=== PATIENT | female | born 1985 | race Caucasian/White ===

== ENCOUNTER 2018-01-02 01:34 | Inpatient (IN) | payer OTHER ==
[2018-01-02] MEDS ORDERED: Misoprostol 400 MCG (4 X 100 MCG TAB) RECTAL PRN (03:03)
[2018-01-02] MEDS ORDERED: Benzocaine/Menthol 20%-0.5% Spray 56 GM Canister TOP PRN (03:03)
[2018-01-02] MEDS ORDERED: Sodium Chloride 0.9% 10 ML Syringe FLUSH PRN (03:03)
[2018-01-02] MEDS ORDERED: Tranexamic Acid 1,000 MG in Sodium Chloride 0.9% 100 ML IV PRN (03:03)
[2018-01-02] MEDS ORDERED: Carboprost Tromethamine 250 MCG/1 ML Amp IM PRN (03:03)
[2018-01-02] MEDS ORDERED: Oxytocin 10 Units/1 ML SDV IM PRN (03:03)
[2018-01-02] MEDS: Ibuprofen 800 MG Tab PO PRN ×3 (03:30→19:36)
[2018-01-02] MEDS ORDERED: Lactated Ringers 1,000 ML IV SCH (03:30)
[2018-01-02] MEDS ORDERED: Oxytocin/Normal Saline 30 UNIT/500 ML BAG IV SCH (03:30)
--- NOTE | 2018-01-02 06:16 | HP ---
HISTORY OF PRESENT ILLNESS: Jana is a 2, para 1-1-1-1, who presents at 39 weeks gestation with active labor. She was seen by her circulation supervisor, Dr. Neff earlier today in clinic and was 4 to 5 cm. She had her membranes stripped at that time. She states that labor began this evening, and significantly strengthened around 1:00. She arrived to the hospital here and nurse found her to be 9 cm dilated with significant urge to push. OBSTETRICAL HISTORY: As stated above. 4, para 1-1-1-1. She has had a previous full-term delivery, previous spontaneous , and a previous baby who was stillborn at 35 weeks gestation, but had noted significant abnormality seen on ultrasounds prior to delivery. OBSTETRICAL LABORATORY: Blood type A positive. Antibody negative. Rubella immune. HIV test nonreactive and negative. TSH was normal. SOCIAL HISTORY: She lives with her here in [place] nearby. He works for the [employer], and she works for the local [employer]. PHYSICAL EXAMINATION: Vital signs: Stable. She is afebrile. General: Jana is a pleasant, 32-year-old woman, in no acute distress. As stated above, she is dilated to 9 cm. As I check her, she only has an anterior lip and feels significant urge to push. DELIVERY NOTE: As soon as I arrived, she had significant urge to push. She was able to push through the anterior cervical lip and reached stage II labor fairly quickly after my arrival. She pushed for approximately 45 minutes to an hour and then delivery was of a 9 pounds 1 ounce male in the MERRILL position. She had initially heavier bleeding than expected for placenta delivery, so 800 mcg of Cytotec were administered intrarectally after placenta was delivered, the perineum was explored, she only had very minor lacerations, nothing that needs to be repaired. ASSESSMENT: 4, now para 2-1-1-2, status post normal spontaneous vaginal delivery. PLAN: We will do normal labor and delivery cares and orders. As we will be keeping baby for the full 2 days because of the group B strep positive status with no antibiotic treatment prior to delivery, we will have her stay 2 days as well. JOHNNIE Bland #: [id number]
[2018-01-02] MEDS: Acetaminophen 325 MG Tab PO PRN ×3 (06:31→18:19)
[2018-01-02] MEDS: Prenatal Multivitamin with Calcium/Folic Acid/Iron Tab PO SCH (08:25)
[2018-01-02] MEDS: Docusate Sodium 100 MG Cap PO PRN ×2 (08:25→19:37)
[2018-01-02] MEDS: Simethicone 80 MG Tab.Chew PO PRN (19:37)
[2018-01-03] MEDS: Acetaminophen 325 MG Tab PO PRN ×4 (00:44→20:04)
[2018-01-03] MEDS: Ibuprofen 800 MG Tab PO PRN ×3 (03:29→20:05)
[2018-01-03] MEDS: Prenatal Multivitamin with Calcium/Folic Acid/Iron Tab PO SCH (10:32)
[2018-01-03] MEDS: Docusate Sodium 100 MG Cap PO PRN ×2 (10:32→20:04)
[2018-01-03] MEDS: Simethicone 80 MG Tab.Chew PO PRN (20:03)
[2018-01-04] MEDS: Acetaminophen 325 MG Tab PO PRN (04:27)
[2018-01-04] MEDS: Ibuprofen 800 MG Tab PO PRN (04:27)
[2018-01-04] MEDS: Prenatal Multivitamin with Calcium/Folic Acid/Iron Tab PO SCH ×2 (08:36→08:37)
[2018-01-04] MEDS: Docusate Sodium 100 MG Cap PO PRN (08:39)
--- NOTE | 2018-01-04 11:58 | PN ---
DATE: 01/03/2018 Jana is a 32-year-old woman, who delivered yesterday via normal spontaneous vaginal delivery. She is having some difficulty with fairly significant pelvic pain and a little bit of back pain as well. Nursing has been doing a good job of helping her get through that. She is still taking Tylenol as ordered. We did offer her a dose of Toradol this morning, she will be thinking about that going forward. Fortunately, baby is well. OBJECTIVE: Vital Signs: Stable. She is afebrile. General: Jana is a pleasant 32-year-old woman, in no acute distress. Heart: Regular rate and rhythm. No murmurs, rubs, or gallops. ABDOMEN: Soft. Fundus is firm. ASSESSMENT: day #1 status post spontaneous vaginal delivery. PLAN: Because baby is staying 1 more day anyway for observation and because she is having such difficulty with her pain , we will have them stay the full 2 days. Anticipate discharge home tomorrow. [facility] /[id number]
--- NOTE | 2018-01-04 12:04 | DISCH ---
Jana is a 32-year-old woman, who presented in active labor on 01/02/2018. She delivered via spontaneous vaginal delivery shortly after admission. HOSPITAL COURSE: Jana has done fairly well since delivery. She did struggle a little bit with some pain, but overall did very well with , and is content going forward. DISCHARGE EXAM: Heart: Regular rate and rhythm. No murmurs, rubs, or gallops. Abdomen: Soft, nontender to palpation. Fundus is firm. DISCHARGE DIAGNOSIS: Status post normal spontaneous vaginal delivery. PLAN: She already has an appointment scheduled for next week with Dr. Neff, her primary provider for her to visit with baby, she will check in with her at that time as well. [facility] /[id number]
== END 2018-01-04 12:05 | disposition home or self-care (01) | DRG 774 ==
LOC: DL.OBCHECK 01:34 → UNDOADMOB 01:52 → DL.OB 01:52 → UNDOADMOB 02:48 → DL.OB 02:58 → INTOOBSV 02:58 → OBSVTOIN 02:58
PROVIDERS: ADMIT Family Medicine; ATTEND Family Medicine
PROC: 10E0XZZ Delivery of Products of Conception, External Approach (ICD-10-PCS; principal; 2018-01-02)
DX: O99.824 Streptococcus B carrier state complicating childbirth (principal); O90.89 Other complications of the puerperium, not elsewhere classified; R10.2 Pelvic and perineal pain; Z3A.39 39 weeks gestation of pregnancy; Z37.0 Single live birth; Z87.59 Personal history of other complications of pregnancy, childbirth and the puerperium
CPT/HCPCS: 36415; 59409; 85025; A9270-GY; J2590; J7120